=== PATIENT | female | born 1980 | race Caucasian/White ===

== ENCOUNTER 2022-05-21 15:04 | Outpatient (CLI) | payer BC, SELFPAY | END 2022-05-21 15:05 | disposition home or self-care (01) | LOC: AMB 06-01 18:08 | PROVIDERS: Visit Provider Family Medicine | DX: R07.89 Other chest pain (principal) | CPT/HCPCS: A0425; A0427 ==

== ENCOUNTER 2022-05-21 15:29 | Emergency (ER) | payer BC, SELFPAY ==
[2022-05-21 15:52] VITALS: BP 126/76; PULSE 82; RESP 20; TEMP 36.6; O2SAT 100; BMI 30.7
--- NOTE | 2022-05-21 16:56 | ED_ITS ---
HPI - General Adult General Chief complaint: Nausea/Vomiting Stated complaint: Methadone withdrawal Time Seen by Provider: 05/21/22 15:57 Source: patient Mode of arrival: EMS Limitations: no limitations History of Present Illness HPI narrative: 41-year-old female with a notable history of opiate addiction and a 15 year participant of a methadone program presents with feelings of opiate withdrawal. Because of the holiday weekend, she was given her her doses for the past 4 days on Sunday prior to . This is typical protocol. Most weeks, she takes her medication Sunday through Sunday daily supervised at the clinic. On Fridays she is given additional doses for Sunday and Sunday. This week, because of the holiday she was given her dose on Sunday and then 4 doses to take over the next 4 days. She takes 160 mg of methadone daily which is a fairly high dose. She reports that she was up on her feet a lot on which was and had increased pain, therefore she took an extra half dose of her methadone which would be an extra 80 mg on . She took her typical dose on Sunday morning and then an extra half dose on Sunday afternoon and her typical dose on Sunday morning. She thinks it may have even been a reduced dose on Sunday morning than typical for her as she started to feel unwell with anxiety last night. She did not have any remaining methadone to take this morning. As the day has progressed she has been having nausea, anorexia, diarrhea, body aches. When I probe specifically in ask about fever, symptoms of illness, she denies these. She notes a runny nose and states that it feels exactly like opiate withdrawal rather than flu-like symptoms. She denies fever or any other systemic symptoms. Her biggest symptom is honestly anxiety. We do discuss this further in she lets me know that about 3 months ago she was started on Lexapro and this was increased after a couple of weeks from 10-20 mg. She states that this is managed by a provider in [place], I do not have access to those records. She does believe that the provider is aware of her high-dose methadone. She is also on Latuda. She denies any recent adjustments to the Latuda dose. She is not currently seeing a psychiatrist or therapist. She says that ever since she started the Lexapro she felt like she has been having increased anxiety and is disappointed that the medicine has not yet started to help. We further discuss how high doses of Lexapro can be unsafe especially if she is taking more than her typical dose of methadone because of the risk of serotonin syndrome. She is not experiencing any tachycardia, there is no fever, she denies any other symptoms that would be suspicious for serotonin syndrome. Denies any trauma or injury. No palpitations, no chest pain. She is quite remorseful regarding the poor use of the methadone. She is quite understanding and is in argue with me when I discussed how I cannot give her opiates to mediate her withdrawal symptoms. Past medical history notable for depression anxiety. Medications reviewed and updated. Allergy list reviewed notable for Tylenol with codeine it sounds as though this was a side effect rather than a true allergy. Denies any recent surgery, pertinent travel. She is a smoker socially and takes no other illicit drugs besides the prescribed methadone. Related Data Home Medications Medication Instructions Recorded Confirmed clonazepam 0.5 mg tablet 0.5 mg PO .every other day 05/21/22 05/21/22 escitalopram oxalate 20 mg tablet 20 mg PO DAILY 05/21/22 05/21/22 eszopiclone 1 mg tablet 1 mg PO DAILY 05/21/22 05/21/22 gabapentin 300 mg capsule 300 mg PO DAILY 05/21/22 05/21/22 lurasidone 80 mg tablet (Latuda) 80 mg PO DAILY 05/21/22 05/21/22 Previous Rx's Medication Instructions Recorded hydroxyzine HCl 25 mg tablet 25 mg PO TID PRN anxiety #14 tabs 05/21/22 ondansetron 4 mg disintegrating 4 mg PO Q8H PRN nausea and 05/21/22 tablet vomiting #7 tabs Allergies Allergy/AdvReac Type Severity Reaction Status Date / Time tylenol3 Allergy Uncoded 05/21/22 15:59 Review of Systems Status of ROS: Reports: 10 or more systems reviewed and unremarkable except as noted in History and below [facility] Social History Smoking Status: Current every day smoker What tobacco products do you use: cigarettes Do you use any of these nicotine containing products: None Second hand tobacco smoke exposure: No How often do you have a drink containing alcohol: never AUDIT-C Alcohol total score: 0 Non-prescribed substance use: denies use Exam Const: Vital Signs, click to edit/add: Vital Signs - 24 hr 05/21/22 15:52 Temperature 97.9 F Pulse Rate [Left P ulse Oximeter] 82 Respiratory Rate 20 Blood Pressure [Le ft Upper Arm] 126/76 Pulse Oximetry 100 Oxygen Delivery Me thod Room Air Documenting provider has reviewed patient's vital signs: yes Common normals: no apparent distress General appearance: cooperative and well kempt HENMT: Common normals: normocephalic Head and scalp: normocephalic Face and sinus: normal facial exam Mouth: oral and palatal mucosa normal Eye: Common normals: conjunctivae normal and no scleral icterus General eye: normal appearance of both eyes Conjunctiva: conjunctiva(e) normal Neck & C-Spine: Common normals: full ROM and no lymphadenopathy Resp: Common normals: normal respiratory effort and clear to auscultation bilaterally Effort & inspection: able to speak in complete sentences Auscultation: clear to auscultation bilaterally Cardio: Common normals: regular rate, regular rhythm, S1 normal heart sound, S2 normal heart sound, no murmurs and peripheral pulses 2+ throughout Rate: regular rate Rhythm: regular rhythm Heart sounds: S1 normal and S2 normal Peripheral pulses: pulses 2+ throughout GI: Common normals: Normal to inspection, nondistended, normoactive bowel sounds present, soft to palpation and no masses Auscultation: normoactive bowel sounds Palpation: soft Extremity: Common normals: normal to inspection and normal capillary refill Psych: Common normals: mental status grossly normal, thought process normal, cooperative, affect normal, speech normal and activity/motor behavior normal Appearance: well kempt Speech: normal speech Thought process: normal thought process Skin: Common normals: no rashes or lesions noted General skin exam: no rashes or lesions noted Course Vital Signs Vital signs: Initial Vital Signs Temperature 97.9 F 05/21/22 15:52 Temperature Source Temporal Artery Scan 05/21/22 15:52 Pulse Rate 82 05/21/22 15:52 Respiratory Rate 20 05/21/22 15:52 Blood Pressure 126/76 05/21/22 15:52 Blood Pressure Mean 92 05/21/22 15:52 Blood Pressure Position Sitting 05/21/22 15:52 Pulse Oximetry 100 05/21/22 15:52 Oxygen Delivery Method 05/21/22 15:52 Vital Signs Temperature 97.9 F 05/21/22 15:52 Pulse Rate 82 05/21/22 15:52 Respiratory Rate 20 05/21/22 15:52 Blood Pressure 126/76 05/21/22 15:52 Pulse Oximetry 100 05/21/22 15:52 Oxygen Delivery Method 05/21/22 15:52 Temperature 97.9 F 05/21/22 15:52 Pulse Rate 82 05/21/22 15:52 Respiratory Rate 20 05/21/22 15:52 Blood Pressure 126/76 05/21/22 15:52 Pulse Oximetry 100 05/21/22 15:52 Oxygen Delivery Method 05/21/22 15:52 Medical Decision Making MDM Narrative Medical decision making narrative: Suspicious for serotonin syndrome, opiate withdrawal. Also concerns for underlying acute infective process like influenza, gastroenteritis. She does not want us to explore these further. She was quite cooperative and understanding as I discussed how we will not be using opiates to alleviate her symptoms of opiate withdrawal. I did offer a dose of Imodium, Zofran and Vistaril. She is accepting of this. I also discussed that since she has used to running at such a high steady state of methadone, her dose tomorrow morning may not fully alleviate her opiate withdrawal. It may take 2 doses before this improves. I have ongoing concerns with her continued use of high-dose Lexapro in the setting of high-dose methadone. I would like for her to discuss this further with her primary care provider would encourage her to reduce her Lexapro by half in the meantime. I will send additional dosing of a low-dose of Vistaril and Zofran to the pharmacy and I discussed how she cannot go over the doses that are recommended which her about typical half maximum doses because of her use of Lexapro in the risk of long QT syndrome especially in the setting of her methadone. She understands these instructions exactly. We reviewed the signs and symptoms that would warrant repeat ED evaluation she verbalized understanding and agreement. Discharge Plan Discharge Clinical Impression: Opiate withdrawal, Medication side effects Patient Disposition: Home, Self-Care Condition: Stable Instructions: Opioid Withdrawal (ED) Additional Instructions: Please keep your appointment tomorrow morning for your next dose of methadone. As we discussed, it may not fully relieve your withdrawal symptoms, but they should be significantly better after your 2nd dose on Sunday. I know you have significant remorse for the way that you used your medications the last few days, I hope that you are not put in this situation again. I have given you a dose of Imodium for the diarrhea, a dose of Zofran for the nausea, and a dose of hydroxyzine also notice Vistaril for the anxiety. This will lessen your symptoms but will not completely alleviate them. I will send additional prescriptions for Zofran and Vistaril to your pharmacy in case you still need these for the next 24 hours. As we discussed, you are not incomplete withdrawal but since your body is use to a certain level of medications, you may get mild withdrawal symptoms even with some of the opiates still in your system. I do have significant concerns about your use of fairly high dose of Lexapro combined with high-dose methadone. Both of these medications can work on serotonin in your brain and can cause interactions if not used very carefully. Since it sounds as though your anxiety has worsened since being on the Lexapro, I would like for you to reduce your Lexapro dose by half until you can follow-up with your provider within the next 1-2 weeks. As we also discussed, I do think you would be a great candidate to transition off of the methadone and onto Suboxone based on the side effect profile. It also makes treating your depression anxiety issues significantly easier because there are fewer medication reactions. Any severe symptoms would warrant repeat ED evaluation. As we discussed, I do expect her to have nausea, diarrhea and anxiety for the next day and a half, this will gradually improve as the methadone gets back in your system. It is critically important you do not take more than the prescribed amount of the medications I have given because of interactions with your methadone and Lexapro. Activity Level: No Restrictions Discharge Diet: Regular Prescriptions: New ondansetron 4 mg tablet,disintegrating 4 mg PO Q8H PRN (Reason: nausea and vomiting) Qty: 7 0RF hydroxyzine HCl 25 mg tablet 25 mg PO TID PRN (Reason: anxiety) Qty: 14 0RF Rx Instructions: Do not take more than the recommended No Action clonazepam 0.5 mg tablet 0.5 mg PO .every other day escitalopram oxalate 20 mg tablet 20 mg PO DAILY eszopiclone 1 mg tablet 1 mg PO DAILY gabapentin 300 mg capsule 300 mg PO DAILY Latuda 80 mg tablet 80 mg PO DAILY Stand Alone Forms: [facility] Info Instructions
[2022-05-21] MEDS: ONDANSETRON ODT 4 MG TAB PO (17:09)
[2022-05-21] MEDS: hydrOXYzine pamoate 25 MG CAPSULE 50 MG PO (17:09)
[2022-05-21] MEDS: LOPERAMIDE HCL 2 MG CAPSULE PO (17:09)
[2022-05-21 17:10] VITALS: BP 107/79; PULSE 69; RESP 20; O2SAT 97
== END 2022-05-21 17:15 | disposition home or self-care (01) ==
LOC: ED 17:05
PROVIDERS: Emergency Provider Family Medicine
DX: F11.13 Opioid abuse with withdrawal (principal)
CPT/HCPCS: 99282; 99283; 99284; A9270

== ENCOUNTER 2022-10-12 12:07 | Emergency (ER) | payer BC, SELFPAY ==
[2022-10-12 12:21] VITALS: BP 111/70; PULSE 66; RESP 18; TEMP 36; O2SAT 100; BMI 29.9
--- NOTE | 2022-10-12 12:56 | ED.GENADULT ---
HPI - General Adult General Chief complaint: Skin/Abscess/Foreign Body Stated complaint: Cyst on neck, abdominal pain Time Seen by Provider: 10/12/22 12:24 Source: patient Mode of arrival: ambulatory Limitations: no limitations History of Present Illness HPI narrative: 41-year-old female presents the emergency department with multiple concerns not of which are the least bit emergent. First, she notes that she has an area of swelling on her left neck. This has been present about 4-5 days and is getting bigger. She has had these previously. She attempted to lj at home last night with no improvement. No fevers. No surrounding redness. No drainage has been noted. She does have a significant history of dental caries and wonders if it is related but has been told by her dentist in the past that it is not. She reports 10 days of diarrhea. Interestingly, on my specific questioning, this does correspond with her starting a new dose of Lunesta, a common sleep medication. She has a history of gastric bypass and is quite prone to diarrhea as well. She did try taking Imodium once yesterday and admits that that did help significantly. There is no blood in her stools, no vomiting. She is still eating and drinking normally. She admits that she is not following a low-fat diet which would typically be recommended after her type of surgery. She says that her urine and stool do smell a little more, she is not really specific about this but on questioning, it also corresponds with the starting of her new medication. She is not noting any dysuria but her urine ?smells chemical?. She does agree to urinalysis. Past medical history notable for chronic methadone, anxiety, insomnia. Surgically she admits to prior gastric bypass. Medications are confirmed accurate per list in our computer records. Allergies are to codeine. ROS is notable for the skin, GI, generalized symptoms as above also notes a mild headache since starting the Lunesta. Related Data Home Medications Medication Instructions Recorded Confirmed clonazepam 0.5 mg tablet 0.5 mg PO .every other day 05/21/22 05/21/22 escitalopram oxalate 20 mg tablet 20 mg PO DAILY 05/21/22 05/21/22 eszopiclone 1 mg tablet 1 mg PO DAILY 05/21/22 05/21/22 gabapentin 300 mg capsule 300 mg PO DAILY 05/21/22 05/21/22 lurasidone 80 mg tablet (Latuda) 80 mg PO DAILY 05/21/22 05/21/22 Previous Rx's Medication Instructions Recorded hydroxyzine HCl 25 mg tablet 25 mg PO TID PRN anxiety #14 tabs 05/21/22 ondansetron 4 mg disintegrating 4 mg PO Q8H PRN nausea and 05/21/22 tablet vomiting #7 tabs cephalexin 500 mg capsule 500 mg PO Q8H #20 caps 10/12/22 Allergies Allergy/AdvReac Type Severity Reaction Status Date / Time codeine Allergy Verified 10/12/22 12:21 tylenol3 Allergy Uncoded 05/21/22 15:59 PFSH PFSH Social History Smoking Status: Current every day smoker What tobacco products do you use: cigarettes Do you use any of these nicotine containing products: None Second hand tobacco smoke exposure: No How often do you have a drink containing alcohol: never AUDIT-C Alcohol total score: 0 Non-prescribed substance use: denies use service: No Exam Const: Vital Signs, click to edit/add: Vital Signs - 24 hr 10/12/22 12:21 Temperature 96.8 F L Pulse Rate [Pulse Oximeter] 66 Respiratory Rate 18 Blood Pressure [Ri ght Upper Arm] 111/70 Pulse Oximetry 100 Oxygen Delivery Me thod Room Air Documenting provider has reviewed patient's vital signs: yes Common normals: no apparent distress General appearance: cooperative and comfortable Other: Insight moderate. HENMT: Common normals: normocephalic and head/scalp atraumatic Head and scalp: normocephalic and atraumatic Other: Significant dental caries, most teeth have been pulled. No obvious areas of redness, swelling or drainage. Eye: Common normals: conjunctivae normal General eye: normal appearance of both eyes Conjunctiva: conjunctiva(e) normal Neck & C-Spine: Common normals: no lymphadenopathy Other: Carbuncle present over left upper sternocleidomastoid muscle. Not really fluctuant. Does not seem to tunnel. There is no surrounding redness. Resp: Common normals: normal respiratory effort Effort & inspection: able to speak in complete sentences Other: Mild expiratory wheeze throughout. Cardio: Common normals: regular rate, regular rhythm, S1 normal heart sound, S2 normal heart sound and no murmurs Rate: regular rate Rhythm: regular rhythm Heart sounds: S1 normal and S2 normal GI: Common normals: Normal to inspection, nondistended, normoactive bowel sounds present, soft to palpation, non-tender, no hepatosplenomegaly and no masses Palpation: soft and no hepatosplenomegaly Extremity: Common normals: normal to inspection and no pedal edema Neuro: Speech: speech normal Motor exam: no movement abnormalities noted Psych: Attitude: calm and engaged Insight: fair Judgement: fair Skin: Common normals: no rashes or lesions noted Narrative: No findings that would be suspicious for IV drug use General skin exam: no rashes or lesions noted Course Vital Signs Vital signs: Initial Vital Signs Temperature 96.8 F L 10/12/22 12:21 Temperature Source Temporal Artery Scan 10/12/22 12:21 Pulse Rate 66 10/12/22 12:21 Pulse Rhythm Regular 10/12/22 12:21 Respiratory Rate 18 10/12/22 12:21 Blood Pressure 111/70 10/12/22 12:21 Blood Pressure Mean 83 10/12/22 12:21 Blood Pressure Position Supine 10/12/22 12:21 Pulse Oximetry 100 10/12/22 12:21 Oxygen Delivery Method Room Air 10/12/22 12:21 Vital Signs Temperature 96.8 F L 10/12/22 12:21 Pulse Rate 66 10/12/22 12:21 Respiratory Rate 18 10/12/22 12:21 Blood Pressure 111/70 10/12/22 12:21 Pulse Oximetry 100 10/12/22 12:21 Oxygen Delivery Method Room Air 10/12/22 12:21 Temperature 96.8 F L 10/12/22 12:21 Pulse Rate 66 10/12/22 12:21 Respiratory Rate 18 10/12/22 12:21 Blood Pressure 111/70 10/12/22 12:21 Pulse Oximetry 100 10/12/22 12:21 Oxygen Delivery Method Room Air 10/12/22 12:21 Medical Decision Making MDM Narrative Medical decision making narrative: Suspect carbuncle of the left neck, does not appear as though it would benefit from drainage at this time. Discussed oral antibiotics. Reviewed signs and symptoms that would warrant ED presentation. Discussed her diarrhea. I suspect that this is the side effect of her new sleep medication. Without any abdominal tenderness, vomiting fever or any other focal findings, there does not seem to be any severe pathology. Her history of gastric bypass makes this more likely for her. She is encouraged to try low-fat diet, p.r.n. use of Imodium and is reassured. She reports that the sleep medicine is working quite well for her. It sounds like the benefit outweighs the risk. Strong smell to her urine, will obtain urinalysis. Will likely be covered with the Keflex if there is an infection. I suspect that this is more so related to her new medication and I reassure her that this is not worrisome as long as she has no findings of infection. Update: The urine does appear to have a bone infection, will treat with the Keflex that will also cover the skin infection. Written instructions provided, all questions answered. First dose of Keflex and Imodium given here in the ED. Lab Data Labs: Lab Results 10/12/22 Range/Units 12:54 Urine Color Yellow (Yellow) Urine Appearance Cloudy A (Clear) Urine pH 6.0 (5.0-8.5) Ur Specific [place] >= 1.030 (1.000-1.030) Urine Protein Negative (Negative) Urine Glucose (UA) Negative (Negative) Urine Ketones Negative (Negative) Urine Blood Negative (Negative) Urine Nitrite Positive A (Negative) Urine Bilirubin Negative (Negative) Urine Urobilinogen 1.0 (0.2-1.0) Ur Leukocyte Esterase Trace A (Negative) Urine RBC 0-2 (0-2) Urine WBC 5-10 A (0-5) Urine WBC Clumps None (None) Ur Squamous Epith Cells Few (None-Few) Urine Bacteria Many A (None) Discharge Plan Discharge Clinical Impression: Carbuncle, Urinary tract infection Patient Disposition: Home, Self-Care Condition: Stable Instructions: Urinary Tract Infection in Women (DC), Abscess (ED) Additional Instructions: There are signs of a mild bladder infection on your urine test. I still suspect that the strong odor is from her sleep medication. Please make sure you are drinking lots of water. As we discussed, it is okay to use Imodium for your ongoing diarrhea. Try not to get much fat in your diet, because of your gastric bypass history. The lump on your neck is a mild skin infection, I have prescribed an antibiotic that will treat both a bladder infection and this skin infection. It may take a couple of weeks to completely go away. It is okay to apply warm compresses to it to help promote drainage but please do not stick any needles or blades into the sore. If it is not improving in 5 days, please schedule follow-up appointment in the clinic. Activity Level: No Restrictions Discharge Diet: Regular Prescriptions: New cephalexin 500 mg capsule 500 mg PO Q8H Qty: 20 0RF No Action clonazepam 0.5 mg tablet 0.5 mg PO .every other day escitalopram oxalate 20 mg tablet 20 mg PO DAILY eszopiclone 1 mg tablet 1 mg PO DAILY gabapentin 300 mg capsule 300 mg PO DAILY Latuda 80 mg tablet 80 mg PO DAILY ondansetron 4 mg tablet,disintegrating 4 mg PO Q8H PRN (Reason: nausea and vomiting) Qty: 7 0RF hydroxyzine HCl 25 mg tablet 25 mg PO TID PRN (Reason: anxiety) Qty: 14 0RF Rx Instructions: Do not take more than the recommended Follow Up/Referrals: Provider,Not a Local [Primary Care Provider] - Stand Alone Forms: [employer] Info Instructions
[2022-10-12 13:04] LABS: Appearance Urine Cloudy (Clear); Bilirubin Urine Negative (Negative); Blood Urine Negative (Negative); Color Urine Yellow (Yellow); Glucose Urine Negative (Negative); Ketones Urine Negative (Negative); Leukocyte Esterase Urine Trace (Negative); Nitrite Urine Positive (Negative); Protein Urine Negative (Negative); Specific Gravity Urine >= 1.030 (1.000-1.030)
[2022-10-12] MEDS: cephALEXin 500 MG CAPSULE PO (13:07)
[2022-10-12] MEDS: LOPERAMIDE HCL 2 MG CAPSULE PO (13:07)
[2022-10-12 13:29] LABS: Bacteria Urine Many; RBC Urine 0-2 (0-2); Squamous Epithelial Cell Urine Few (None-Few)
== END 2022-10-12 13:49 | disposition home or self-care (01) ==
PROVIDERS: Emergency Provider Family Medicine
DX: L02.13 Carbuncle of neck (principal); N39.0 Urinary tract infection, site not specified
CPT/HCPCS: 81003; 81015; 87086; 87186; 99283; A9270